=== PATIENT | male | born 1975 | race Caucasian/White ===

== ENCOUNTER 2023-02-12 14:39 | Emergency (ER) | payer SELFPAY ==
[2023-02-12 14:52] VITALS: BP 177/109; PULSE 86; RESP 20; TEMP 37.4; O2SAT 99
--- NOTE | 2023-02-12 16:25 | ED.GENADULT ---
HPI - General Adult General Chief complaint: Upper Respiratory Infection Stated complaint: Sore Throat Source: patient Mode of arrival: ambulatory Limitations: no limitations History of Present Illness HPI narrative: Patient presents for evaluation of sore throat since yesterday. He developed some right-sided facial/neck swelling today. He now has trismus, difficulty swallowing fluids and soft foods. He states he is only able to tolerate his own secretions. He has experienced chills without fever. No nausea, vomiting, diarrhea, respiratory symptoms. No recent sick contacts. He does not smoke. He took tylenol for his pain without considerable improvement thereafter. Related Data Home Medications Medication Instructions Recorded Confirmed clonidine HCl 0.1 mg tablet mg 02/12/23 losartan 100 mg tablet mg 02/12/23 nifedipine 30 mg tablet,extended mg PO 02/12/23 release Allergies Allergy/AdvReac Type Severity Reaction Status Date / Time No Known Allergies Allergy Verified 02/12/23 15:08 Review of Systems Review of Systems: CONSTITUTIONAL: Reports chills. Denies fever or sweats. EYES: Denies visual changes, redness, or discharge. ENT: Reports sore and right-sided facial/neck swelling. CARDIOVASCULAR: Denies chest pain, palpitations, or edema. RESPIRATORY: Denies cough or dyspnea. GASTROINTESTINAL: Denies abdominal pain, nausea, vomiting, or diarrhea. GENITOURINARY: Denies dysuria or hematuria. SKIN: Denies rash or itching. MUSCULOSKELETAL: Denies back pain, joint pain, or myalgia. NEUROLOGIC: Denies headache, numbness, dizziness, or weakness. PSYCHIATRIC: Denies anxiety or depression. [facility] Past Medical History Medical History (Updated 02/12/23 @ 16:35 by TIMOTHY Nair, ) No pertinent past medical history Surgical History Surgical History No pertinent past surgical history Family History Family History Other Diabetes mellitus Hypertension Social History Social History Smoking status: Never smoker Alcohol intake: current Substance use: never Gender identity (if verbalized by the patient): Male Spiritual care concerns: No Exam Narrative: GENERAL: Well-appearing, well-nourished, and in no acute distress. HEAD: Normocephalic, atraumatic. EYES: PERRLA and EOMI. ENT: Nares clear, no rhinorrhea or epistaxis. Mucous membranes moist. Positive for trismus. Negative for stridor. There is swelling along the right mandible. Bilateral TMs pearly doyle nonbulging NECK: Supple. No adenopathy or masses. No carotid bruits or JVD. There is swelling in the right side of the neck migrating midline CHEST: Clear to auscultation. No respiratory distress. No wheezes rales or rhonchi HEART: Regular rate and rhythm. No murmur heard. Normal peripheral pulses. ABDOMEN: Soft, nontender, nondistended, normal active bowel sounds. EXTREMITIES: Normal range of motion. No edema. SKIN: Warm, dry, no rash. NEURO: No focal deficits. Alert and oriented x3. PSYCH: Normal mood and affect. Course Course Emergency Course: This is a 47-year-old male who presented for evaluation of right-sided neck and facial swelling with sore throat. He has trismus on exam which is concerning. He is only able to tolerate his own secretions. I recommended he go to the hospital for further evaluation. He was agreeable to plan. I contacted [facility], has facility of preference. I provided report to the RN, Deisy. She indicates that Dr Damon will agree to accept pt to the Dept there. Level of Care: Express Care Visit Vital Signs Vital signs: Vital Signs Temperature 37.4 C 02/12/23 14:52 Pulse Rate 86 02/12/23 14:52 Respiratory Rate 20 02/12/23 14:52 Blood Pressure 177/109 H 02/12/23 14:52 Pulse
== END 2023-02-12 16:24 | disposition short-term general hospital (02) ==
PROVIDERS: Emergency Provider Nurse Practitioner; PCP Internal Medicine Infectious Disease
DX: J02.9 Acute pharyngitis, unspecified (principal); R22.0 Localized swelling, mass and lump, head; R25.2 Cramp and spasm
CPT/HCPCS: 87081; 87880; 99203; G0463